=== PATIENT | male | born 1965 | race Caucasian/White ===

== ENCOUNTER → 2022-03-28 08:35 | Outpatient (CLI) | payer OTHER, SELFPAY ==
--- NOTE | ~2022-03-28 | US_ITS ---
EXAMINATION: US right upper quadrant DATE: 03/28/2022 09:02 INDICATION: Elevated liver enzymes TECHNIQUE: Multiple grayscale and Doppler ultrasound images of the abdomen were obtained. COMPARISON: None available FINDINGS: The head and body of the pancreas are normal. The pancreatic tail is obscured by bowel gas. The liver is normal with normal echogenicity and echotexture. There is nodularity of the liver surfa ce. Normal hepatopetal flow in the main portal vein. There appears to be a 4 mm polyp of the gallblad mohinder. There is no gallbladder wall thickening or pericholecystic fluid. The normal common bile duct me asures 3 mm. There was no sonographic Mathew sign. IMPRESSION: 1. Nodularity of the liver surface, consistent with cirrhosis. Reviewed, dictated and finalized at location [facility].
== END ==
PROVIDERS: Visit Provider Nurse Practitioner Family
DX: R74.01 Elevation of levels of liver transaminase levels (principal); D53.8 Other specified nutritional anemias
CPT/HCPCS: 76705

== ENCOUNTER → 2023-03-22 07:39 | Outpatient (CLI) | payer OTHER, SELFPAY ==
--- NOTE | ~2023-03-22 | US_ITS ---
Limited Abdominal Sonogram: Real-time sonographic imaging of the right upper quadrant was performed. Clinical History: Cirrhosis Findings: Nodular contour of liver noted. Hepatic echotexture is heterogeneous. No mass lesion or int rahepatic biliary dilatation. Main portal vein demonstrates normal direction of flow. The gallbladder is well distended, with no evidence of gallstone. There is gallbladder wall thickening up to 6 mm. T he common bile duct measures 3 mm. The visualized pancreas, aorta, and IVC are unremarkable. Right k idney measures 10.5 cm in length, without evidence for hydronephrosis. Impression: Findings consistent with cirrhosis of the liver. No mass lesion or biliary dilatation. Mild gallbladder wall thickening without gallstone. This is a nonspecific finding. Correlate clinical ly. Reviewed, dictated and finalized at [facility]. Impression: Findings consistent with cirrhosis of the liver. No mass lesion or biliary dila tation. Mild gallbladder wall thickening without gallstone. This is a nonspecific findi ng. Correlate clinically.
== END ==
PROVIDERS: PCP Hospitalist; Visit Provider Internal Medicine Gastroenterology
DX: K74.60 Unspecified cirrhosis of liver (principal)
CPT/HCPCS: 76705